=== PATIENT | female | born 1925 | race Caucasian/White ===

== ENCOUNTER 2016-03-07 21:15 | Emergency (ER) | payer OTHER ==
[~2016-03-07] VITALS: Ht 167.6 cm; Wt 83.9 kg
[~2016-03-07 21:15] MED LIST: ALBU18HF2 IH; ALLO100T PO; ASCO500T9 PO; ASPI-991 PO; ATOR40TA PO; BECL8.7A6 IH; BLOO-668 IN; CHOL100062 PO; CLOP75TA2 PO; CYAN500T4 PO; DOCU250C75 PO; FURO20TA4 PO; HC A30CR2 RC; HYDR-4076 PO; HYDR-429 PO; ISOS30TA6 PO; LEVO150T PO; LISI10TA5 PO; LORA10TA7 PO; METF500T4 PO; METO25TA6 PO; MULT-1168 PO; NITR0.4T SL; NPH,100V SQ; PARO40TA PO; TROS20TA3 PO
[2016-03-07] MEDS ORDERED: ONDANSETRON HCL/PF 4 MG/2 ML VIAL ONE (22:06)
[2016-03-07] MEDS ORDERED: ASPIRIN 81 MG TAB.CHEW ONE (22:21)
[2016-03-07] MEDS ORDERED: NITROGLYCERIN 0.4 MG/TAB BOTTLE ONE ×2 (22:22→22:31)
[2016-03-07] MEDS ORDERED: FUROSEMIDE 40 MG/4 ML VIAL ONE (22:22)
[2016-03-07] MEDS ORDERED: ONDANSETRON HCL/PF 4 MG/2 ML VIAL IV ONE (22:30)
[2016-03-07] MEDS ORDERED: FUROSEMIDE 40 MG/4 ML VIAL IV ONE (22:30)
[2016-03-07] MEDS ORDERED: ASPIRIN 325 MG TABLET PO ONE (22:30)
[2016-03-07] MEDS ORDERED: ASPIRIN 325 MG TABLET ONE (22:31)
[2016-03-07] MEDS: NITROGLYCERIN 0.4 MG/TAB BOTTLE SL PRN ×4 (22:41→22:58)
[2016-03-07 22:48] LABS: BASOPHILS % (AUTO) 0.2 % (0.0-2.0); DIFF TOTAL % 100 %; EOSINOPHILS # (AUTO) 0.2 /CMM (0.0-0.7); EOSINOPHILS % (AUTO) 2.5 % (0.0-6.0); HEMATOCRIT 32 % (33-45); HEMOGLOBIN 10.8 g/dL (11.5-14.8); LYMPHOCYTES # (AUTO) 1.1 /CMM (0.8-4.8); MEAN CORPUSCULAR HEMOGLOBIN 30 PG (26.0-33.0); MEAN CORPUSCULAR HGB CONC 33 g/dl (31.0-36.0); MEAN CORPUSCULAR VOLUME 89 fL (82-100); MONOCYTES # (AUTO) 0.6 /CMM (0.1-1.30); MONOCYTES % (AUTO) 6.6 % (2.0-12.0); NEUTROPHILS # (AUTO) 6.8 /CMM (1.8-8.9); NEUTROPHILS % (AUTO) 77.7 % (43.0-81.0); PLATELET COUNT (AUTO) 215 /CMM (150-450); RED BLOOD CELL COUNT(AUTO) 3.62 MIL/uL (4.0-5.2); WHITE BLOOD COUNT (AUTO) 8.8 K/uL (4.3-11.0)
[2016-03-07 23:00] LABS: CALCIUM, SERUM 8.6 mg/dL (8.5-10.1); CREATININE 1.3 mg/dL (0.6-1.3); POTASSIUM 3.5 mmol/L (3.5-5.1)
[2016-03-07 23:03] LABS: INR 1.09 (0.87-1.13); PROTHROMBIN TIME 11.8 SECS (9.5-12.7)
[2016-03-07 23:07] LABS: TROPONIN I 0.037 ng/mL (0.00-0.056)
[2016-03-08 02:14] VITALS: BP 125/59
== END 2016-03-08 03:40 ==
LOC: ER 21:16
DX: I24.9 Acute ischemic heart disease, unspecified (principal); I50.9 Heart failure, unspecified; D64.9 Anemia, unspecified; E87.1 Hypo-osmolality and hyponatremia; E11.65 Type 2 diabetes mellitus with hyperglycemia; I25.10 Atherosclerotic heart disease of native coronary artery without angina pectoris; I10 Essential (primary) hypertension; F41.9 Anxiety disorder, unspecified; I25.2 Old myocardial infarction; C50.919 Malignant neoplasm of unspecified site of unspecified female breast; E03.9 Hypothyroidism, unspecified; Z91.013 Allergy to seafood
CPT/HCPCS: 36415; 71010; 80048; 82962; 84484; 85025; 85730; 93005; 96374; 96375; 99291; A4606; J1940; J2405; Z7610

== ENCOUNTER 2016-03-28 23:14 | Emergency (ER) | payer OTHER ==
[~2016-03-28] VITALS: Ht 165.1 cm; Wt 77.6 kg
[~2016-03-28 23:14] MED LIST changes: -HYDR-429 PO; +HYDR-548 PO
[2016-03-28] MEDS ORDERED: ASPIRIN 325 MG TABLET ONE (23:21)
[2016-03-28] MEDS ORDERED: ASPIRIN 325 MG TABLET PO ONE (23:30)
[2016-03-28 23:50] LABS: BASOPHILS % (AUTO) 0.2 % (0.0-2.0); DIFF TOTAL % 100 %; EOSINOPHILS # (AUTO) 0.3 /CMM (0.0-0.7); EOSINOPHILS % (AUTO) 2.5 % (0.0-6.0); HEMATOCRIT 38 % (33-45); HEMOGLOBIN 12.2 g/dL (11.5-14.8); LYMPHOCYTES # (AUTO) 1.1 /CMM (0.8-4.8); LYMPHOCYTES % (AUTO) 9.7 % (20.0-44.0); MEAN CORPUSCULAR HEMOGLOBIN 29 PG (26.0-33.0); MEAN CORPUSCULAR HGB CONC 32 g/dl (31.0-36.0); MEAN CORPUSCULAR VOLUME 89 fL (82-100); MONOCYTES # (AUTO) 0.6 /CMM (0.1-1.30); MONOCYTES % (AUTO) 5.3 % (2.0-12.0); NEUTROPHILS % (AUTO) 82.3 % (43.0-81.0); PLATELET COUNT (AUTO) 285 /CMM (150-450); RED BLOOD CELL COUNT(AUTO) 4.24 MIL/uL (4.0-5.2); WHITE BLOOD COUNT (AUTO) 10.9 K/uL (4.3-11.0)
[2016-03-29 00:06] LABS: CALCIUM, SERUM 9.1 mg/dL (8.5-10.1); CREATININE 1.2 mg/dL (0.6-1.3); POTASSIUM 3.9 mmol/L (3.5-5.1)
[2016-03-29 00:07] LABS: TROPONIN I 0.074 ng/mL (0.00-0.056)
[2016-03-29 00:08] LABS: INR 1.06 (0.87-1.13); PROTHROMBIN TIME 11.5 SECS (9.5-12.7)
[2016-03-29 00:10] LABS: LACTIC ACID 1.4 mmol/L (0.4-2.0)
[2016-03-29 00:19] LABS: ALBUMIN 3.4 g/dL (3.4-5.0); BILIRUBIN,DIRECT 0.1 mg/dL (0.0-0.2); BILIRUBIN,TOTAL 0.3 mg/dL (0.2-1.0); INDIRECT BILIRUBIN 0.2 mg/dL (0.0-1.1); TOTAL PROTEIN, SERUM 6.8 g/dL (6.4-8.2)
[2016-03-29 01:25] VITALS: BP 112/47
== END 2016-03-29 03:29 | disposition short-term general hospital (02) ==
LOC: ER 23:16
DX: I50.9 Heart failure, unspecified (principal); I21.4 Non-ST elevation (NSTEMI) myocardial infarction; I10 Essential (primary) hypertension; I25.2 Old myocardial infarction; E11.9 Type 2 diabetes mellitus without complications; F41.9 Anxiety disorder, unspecified; F32.9 Major depressive disorder, single episode, unspecified; C50.919 Malignant neoplasm of unspecified site of unspecified female breast; E03.9 Hypothyroidism, unspecified; M10.9 Gout, unspecified; Z95.0 Presence of cardiac pacemaker
CPT/HCPCS: 36415; 71010; 80048; 80076; 83605; 83880; 84484; 85025; 85730; 87040 ×2; 93005; 99285; A4606; Z7610

== ENCOUNTER 2016-06-13 22:00 | Inpatient (IN) | payer OTHER ==
[~2016-06-13] VITALS: Ht 160 cm; Wt 80.7 kg
--- NOTE | 2016-06-13 22:05 | NUR ---
To bed 5 an 89 yo female bibra with c/o sob. Per paramedics, patient was satting at 84% on room. Received patient aaox3, with labored breathing, on nonrebreather at 15lpm, satting at 97%. Nondiaphoretic. Izard alivia lung wheezes and crackles. VSS. Gowned. Kept HOB elevated. quality assurance monitor final on. Dr Phillips at bedside for eval.
--- NOTE | 2016-06-13 22:05 | NUR ---
Dr Phillips at bedside for eval.
--- NOTE | 2016-06-13 22:06 | NUR ---
Placed patient on 2lpm of O2 nasal cannula per Dr Phillips's order, patient ivelisse well, satting at 96%. Encouraged deep breathing exercises.
[2016-06-13] MEDS ORDERED: ENALAPRILAT DIHYD. (2.5MG/ML) 1.25 MG/ML VIAL IV ONE ×2 (22:13→22:30)
[2016-06-13] MEDS ORDERED: FUROSEMIDE 40 MG/4 ML VIAL ONE (22:13)
[2016-06-13] MEDS ORDERED: NITROGLYCERIN PACKET 1 GM PACKET ONE (22:14)
--- NOTE | 2016-06-13 22:18 | NUR ---
inserted aseptically de la rosa cath f16, ivelisse well. drained clear yellow urine about 150cc.
--- NOTE | 2016-06-13 22:25 | NUR ---
left forearm g20, intact and patent, blood drawn and sent to lab.
[2016-06-13] MEDS ORDERED: FUROSEMIDE 40 MG/4 ML VIAL IV ONE (22:30)
[2016-06-13] MEDS ORDERED: NITROGLYCERIN PACKET 1 GM PACKET TD ONE (22:30)
[2016-06-13] MEDS ORDERED: LEVOFLOXACIN 750 MG /D5W 150ML 150 ML IV ONE ×2 (22:46→23:00)
[2016-06-13] MEDS ORDERED: IV SET PRIMARY PUMP SET 1 EA INFUS.SET MC ONE (22:46)
[2016-06-13 22:50] LABS: BASOPHILS % (AUTO) 0.3 % (0.0-2.0); EOSINOPHILS # (AUTO) 0.4 /CMM (0.0-0.7); HEMATOCRIT 35 % (33-45); HEMOGLOBIN 11.6 g/dL (11.5-14.8); LYMPHOCYTES # (AUTO) 1.2 /CMM (0.8-4.8); MEAN CORPUSCULAR HEMOGLOBIN 29 PG (26.0-33.0); MEAN CORPUSCULAR HGB CONC 33 g/dl (31.0-36.0); MEAN CORPUSCULAR VOLUME 88 fL (82-100); MONOCYTES # (AUTO) 0.7 /CMM (0.1-1.30); MONOCYTES % (AUTO) 7.3 % (2.0-12.0); NEUTROPHILS # (AUTO) 7.5 /CMM (1.8-8.9); NEUTROPHILS % (AUTO) 76.4 % (43.0-81.0); PLATELET COUNT (AUTO) 264 /CMM (150-450); RDW COEFFICIENT OF VARIATION 18.2 (11.5-15.0); RED BLOOD CELL COUNT(AUTO) 4.04 MIL/uL (4.0-5.2); WHITE BLOOD COUNT (AUTO) 9.8 K/uL (4.3-11.0)
[2016-06-13] MEDS ORDERED: ALBUTEROL FS 2.5 MG/3 ML VIAL.NEB ONE (22:51)
[2016-06-13 23:00] LABS: CALCIUM, SERUM 8.6 mg/dL (8.5-10.1); CREATININE 1.8 mg/dL (0.6-1.3); POTASSIUM 3.8 mmol/L (3.5-5.1)
[2016-06-13] MEDS ORDERED: ALBUTEROL FS 2.5 MG/3 ML VIAL.NEB NEB ONE (23:00)
[2016-06-13 23:04] LABS: INR 1.04 (0.87-1.13); PROTHROMBIN TIME 11.1 SECS (9.5-12.7)
[2016-06-13 23:08] LABS: TROPONIN I 0.035 ng/mL (0.00-0.056)
--- NOTE | 2016-06-13 23:09 | NUR ---
Breathing treatment completed per RT.
[2016-06-13 23:16] LABS: LACTIC ACID 1.8 mmol/L (0.4-2.0)
--- NOTE | 2016-06-13 23:20 | NUR ---
CALLED NURSING SUP. FOR TELE BED
[2016-06-13 23:23] LABS: ALBUMIN 3.4 g/dL (3.4-5.0); BILIRUBIN,DIRECT 0.1 mg/dL (0.0-0.2); BILIRUBIN,TOTAL 0.3 mg/dL (0.2-1.0); TOTAL PROTEIN, SERUM 6.5 g/dL (6.4-8.2)
--- NOTE | 2016-06-13 23:23 | NUR ---
CALLED [facility], PRESENTED PT, AWAITING CALL BACK FROM [facility]
--- NOTE | 2016-06-13 23:41 | NUR ---
Report given to Lien GARCIA for krystle.
[2016-06-14] VITALS (7 sets, daily range): BP systolic 113–141; BP diastolic 34–79
[2016-06-14] MEDS ORDERED: ZOLPIDEM TARTRATE 5 MG TABLET PO PRN (00:30)
[2016-06-14] MEDS ORDERED: MAGNESIUM HYDROXIDE 30 ML UDC PO PRN (00:30)
[2016-06-14] MEDS ORDERED: MAG HYDROX/AL HYDROX/SIMETH 30 ML UDC PO PRN (00:30)
[2016-06-14] MEDS ORDERED: ACETAMINOPHEN 325 MG TABLET PO PRN (00:30)
[2016-06-14] MEDS ORDERED: NITROGLYCERIN 0.4 MG/TAB BOTTLE SL PRN (00:30)
[2016-06-14] MEDS ORDERED: ONDANSETRON HCL/PF 4 MG/2 ML VIAL IVP PRN (00:30)
[2016-06-14] MEDS ORDERED: DEXTROSE 50%-WATER 50 ML DISP.SYRIN IV PRN (01:00)
--- NOTE | 2016-06-14 01:00 | NUR ---
Transported to room 113-2 via [facility] protocol, no incident noted. Patient reported relief from sob.
--- NOTE | 2016-06-14 01:15 | NUR ---
RN NOTES RECEIVED PX FROM ER VIA GURNEY AWAKE, ALERT, ORIENTED X 3, HOOKED TO HEART MONITOR, A-PACED, VITAL SIGNS WNL, ON NC AT 2 LPM SATURATING 99%, RECEIVED WITH PIV ON LEFT HANDG20, D/C'D AND PLACED A NEW ONE ON RIGHT WRIST G20 WITH GOOD BLOOD RETURN, PATENT AND INTACT; RECEIVED WITH RIOS CATH CONNECTED TO BAG BY GRAVITY; CHANGED TO HOSPITAL GOWN, MULTIPLE BRUISES NOTED, WITH SCAR UNDER LEFT BREAST, SKIN INTACT; BED BATH RENDERED; PROCEDURE TOLERATED; HEELS OFFLOAADED, REPOSITIONED FOR COMFORT WITH HOB AT 30 ANGLE; PX DENIED PAIN, SOB, N/V; DISCUSSED PLAN OF CARE.
--- NOTE | 2016-06-14 06:10 | NUR ---
RN NOTES PX CONDITION AND NEURO STATUS UNCHANGED; NOT IN DISTRESS; DENIED PAIN, SOB, N/V; EARLY AM CARE RENDERED; PIV PATENT AND INTACT; SKIN REMAINED INTACT; REPOSITIONED WITH HOB AT 30 ANGLE; WILL ENDORSE TO NEXT RN.
[2016-06-14] MEDS: BLOOD SUGAR DIAGNOSTIC 1 EACH STRIP IN SCH ×3 (06:40→17:48)
[2016-06-14] MEDS: INSULIN REGULAR, HUMAN 100 UNIT/ML 3 ML VIAL SQ PRN ×3 (06:42→17:53)
[2016-06-14] MEDS ORDERED: LEVOTHYROXINE SODIUM 150 MCG TABLET PO SCH (07:30)
[2016-06-14] MEDS: PANTOPRAZOLE 40 MG TABLET.DR PO SCH (07:30)
--- NOTE | 2016-06-14 07:30 | NUR ---
RN IRENE INITIAL NOTES RECEIVED REPORT AND PT FROM PM NURSE, A&O X4 BRAZILIAN SPEAKING, NO SOB OR ACUTE DISTRESS, ON 2L NC SAT ABOVE 97%, ON TELE MON AC PACE WITH HR 60, RIOS CATH DRAINING URINE VIA GRAVITY, RT WRIST 20G IV INTACT PATENT, ALL NEEDS MET, ALL SAFETY MEASURES INITIATED, SIDE RAILS X2, BED LOW AND LOCKED, CALL LIGHT WITHIN REACH, WILL CONTINUE TO MONITOR.
[2016-06-14 07:42] LABS: BASOPHILS % (AUTO) 0.3 % (0.0-2.0); EOSINOPHILS # (AUTO) 0.3 /CMM (0.0-0.7); EOSINOPHILS % (AUTO) 3.1 % (0.0-6.0); HEMATOCRIT 33 % (33-45); HEMOGLOBIN 10.7 g/dL (11.5-14.8); LYMPHOCYTES # (AUTO) 1.1 /CMM (0.8-4.8); LYMPHOCYTES % (AUTO) 11.9 % (20.0-44.0); MEAN CORPUSCULAR HEMOGLOBIN 29 PG (26.0-33.0); MEAN CORPUSCULAR HGB CONC 33 g/dl (31.0-36.0); MEAN CORPUSCULAR VOLUME 88 fL (82-100); MONOCYTES # (AUTO) 0.9 /CMM (0.1-1.30); MONOCYTES % (AUTO) 9.6 % (2.0-12.0); NEUTROPHILS # (AUTO) 7.1 /CMM (1.8-8.9); NEUTROPHILS % (AUTO) 75.1 % (43.0-81.0); PLATELET COUNT (AUTO) 244 /CMM (150-450); RDW COEFFICIENT OF VARIATION 17.5 (11.5-15.0); RED BLOOD CELL COUNT(AUTO) 3.75 MIL/uL (4.0-5.2); WHITE BLOOD COUNT (AUTO) 9.4 K/uL (4.3-11.0)
[2016-06-14 07:57] LABS: CALCIUM, SERUM 8.7 mg/dL (8.5-10.1); CREATININE 1.6 mg/dL (0.6-1.3); MAGNESIUM 1.7 mg/dL (1.8-2.4); PHOSPHORUS 3.7 mg/dL (2.5-4.9); POTASSIUM 3.7 mmol/L (3.5-5.1)
[2016-06-14 07:59] LABS: TROPONIN I 0.244 ng/mL (0.00-0.056)
[2016-06-14] MEDS ORDERED: LEVOTHYROXINE SODIUM 75 MCG TABLET PO SCH (08:05)
[2016-06-14] MEDS ORDERED: IV NS 0.9% 1,000 ML IV PRN (08:43)
[2016-06-14] MEDS: ISOSORBIDE MONONITRATE (30MG) 30 MG TAB.SR.24H PO SCH ×2 (09:00→11:14)
[2016-06-14] MEDS ORDERED: CHOLECALCIFEROL 1,000 UNIT TABLET (VIT D3) PO SCH (09:00)
[2016-06-14] MEDS ORDERED: CYANOCOBALAMIN 500 MCG TABLET PO SCH (09:00)
[2016-06-14] MEDS ORDERED: PAROXETINE HCL 20 MG TABLET PO SCH ×3 (09:00→17:00)
[2016-06-14] MEDS ORDERED: LISINOPRIL (10MG) 10 MG TABLET PO SCH (09:00)
[2016-06-14] MEDS ORDERED: CLOPIDOGREL BISULFATE 75 MG TABLET PO SCH (09:00)
[2016-06-14] MEDS ORDERED: FUROSEMIDE 40 MG TABLET PO SCH (09:00)
[2016-06-14] MEDS ORDERED: ASPIRIN EC 81 MG TABLET.DR PO SCH (09:00)
[2016-06-14] MEDS ORDERED: MULTIPLE VIT/MINERALS 1 EA TABLET PO SCH (09:00)
[2016-06-14] MEDS ORDERED: LORATADINE 10 MG TABLET PO SCH (09:00)
[2016-06-14] MEDS ORDERED: ALLOPURINOL 100 MG TABLET PO SCH (09:00)
[2016-06-14] MEDS ORDERED: ASCORBIC ACID 500 MG TABLET PO SCH (09:00)
[2016-06-14] MEDS ORDERED: IV SET PRIMARY PUMP SET 1 EA INFUS.SET MC ONE ×2 (09:22→12:09)
[2016-06-14] MEDS ORDERED: ENOXAPARIN SODIUM 80 MG/0.8 ML DISP.SYRIN SQ SCH (09:30)
[2016-06-14] MEDS: FLUTICASONE/SALMETEROL DISKUS IH SCH ×2 (09:45→17:47)
[2016-06-14] MEDS: Magnesium 1GM/D5W 100ML PREMIX 100 ML IV SCH ×2 (09:45→11:14)
[2016-06-14] MEDS: METOPROLOL TARTRATE 25 MG TABLET PO SCH ×2 (09:50→17:47)
[2016-06-14] MEDS ORDERED: ALPRAZOLAM 0.25 MG TABLET PO PRN ×2 (13:30→16:33)
[2016-06-14] MEDS ORDERED: ALBUTEROL FS 2.5 MG/0.5 ML VIAL.NEB NEB PRN (13:30)
[2016-06-14] MEDS ORDERED: LEVO500T15 IV (15:15)
[2016-06-14] MEDS ORDERED: ATORVASTATIN 40 MG TABLET PO SCH (18:00)
--- NOTE | 2016-06-14 18:19 | NUR ---
COLOR PRINT INSPECTOR NOTES PT REFUSES IV FLUIDS AT THIS TIME, STATES WILL DRINK ORAL LIQUIDS, GENE HOLLOWAY AWARE.
--- NOTE | 2016-06-14 18:19 | NUR ---
EDUCATION PROFESSOR ENDING NOTES PT STABLE WITH NO ACUTE CHANGES NOTED, AWAITING FOR TRANSFER TO [facility], ALL PAPERWORK SIGNED AND COMPELETED AND PLACED IN CHART, WILL ENDORSE TO PM NURSE,
--- NOTE | 2016-06-14 19:30 | NUR ---
REPORT GIVEN TO ALL GARCIA, [facility] . PATIENT STABLE TO TRANSFER.
--- NOTE | 2016-06-14 21:50 | NUR ---
REPORT GIVEN TO PARAMEDICS. MIMI'S VSS, AFEBRILE. PATIENT PICKED UP TO BE TRANSFER TO [facility]
[2016-06-14] MEDS ORDERED: DOCUSATE SODIUM 250 MG CAPSULE PO SCH (22:00)
[2016-06-14] MEDS ORDERED: LEVOFLOXACIN 750 MG /D5W 150ML 750 MG in PREMIX 1 EA IV SCH (22:00)
== END 2016-06-14 21:55 | disposition short-term general hospital (02) | DRG 280 ==
LOC: ER 22:04 → TELE1 23:48 → TELE-TD 06-14 00:38 → TELE1 06-14 09:04
PROVIDERS: ADMIT Nurse Practitioner Acute Care; ATTEND Nurse Practitioner Acute Care
DX: I13.0 Hypertensive heart and chronic kidney disease with heart failure and stage 1 through stage 4 chronic kidney disease, or unspecified chronic kidney disease (principal); I21.4 Non-ST elevation (NSTEMI) myocardial infarction; I50.33 Acute on chronic diastolic (congestive) heart failure; J96.00 Acute respiratory failure, unspecified whether with hypoxia or hypercapnia; J15.9 Unspecified bacterial pneumonia; E87.1 Hypo-osmolality and hyponatremia; J44.0 Chronic obstructive pulmonary disease with (acute) lower respiratory infection; N17.9 Acute kidney failure, unspecified; E11.22 Type 2 diabetes mellitus with diabetic chronic kidney disease; I25.10 Atherosclerotic heart disease of native coronary artery without angina pectoris; E78.5 Hyperlipidemia, unspecified; N18.9 Chronic kidney disease, unspecified; M10.9 Gout, unspecified; Z85.3 Personal history of malignant neoplasm of breast; Z87.891 Personal history of nicotine dependence; Z98.61 Coronary angioplasty status; I34.0 Nonrheumatic mitral (valve) insufficiency; I35.1 Nonrheumatic aortic (valve) insufficiency; I25.2 Old myocardial infarction; E89.0 Postprocedural hypothyroidism; Z95.0 Presence of cardiac pacemaker; E83.42 Hypomagnesemia; R91.8 Other nonspecific abnormal finding of lung field; Z79.84 Long term (current) use of oral hypoglycemic drugs; S42.001A Fracture of unspecified part of right clavicle, initial encounter for closed fracture; X58.XXXA Exposure to other specified factors, initial encounter; Y93.9 Activity, unspecified; Y92.009 Unspecified place in unspecified non-institutional (private) residence as the place of occurrence of the external cause; Y99.9 Unspecified external cause status
CPT/HCPCS: 36415; 71010-TC; 80048-TC; 80061-TC; 80076-TC; 82962-TC; 83605-TC; 83735-TC; 83880; 84100-TC; 84484-TC; 85025-TC; 85730-TC; 87040-TC; 87081-TC; 93307-TC; 94799-TC; A4216; A4606; J1650; J1815; J1940; J1956; J3475; J3490; J7030; Z7610